=== PATIENT | female | born 1935 | race Caucasian/White ===

== ENCOUNTER 2024-10-10 13:12 | Day surgery (SDC) | payer MEDICARE, SELFPAY ==
[2024-10-04 14:07] VITALS: BMI 22.2
--- NOTE | 2024-10-09 16:58 | EXP.HP ---
History of Present Illness *Admission Date: 10/10/24 *History of present illness: Mrs. Holt is an 89-year-old female who is here for diagnostic EGD. She was seen in the office in April 2024. 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 The patient does take psyllium Konsyl daily. The patient was struggling with bowel and bladder control difficulties and did undergo Axonics last year. She does state that she is 75% improved with her symptoms of bowel and bladder control. Her only complaint now is mild GERD symptoms that are present most days. She does get some moderate gassiness and bloating. The patient does have a personal history of adenomatous polyps. She had a colonoscopy in May 2020 and had small tubular adenomas removed and banding of internal hemorrhoids. Her last colonoscopy with me in May 2023 revealed 2 benign polyps (tubular adenomas x 2) which were removed. I did state that she would not require any further surveillance. She had an EGD with me in May 2023 and had evidence of pyloric sparing Whipple procedure with Sreekanth anatomy. She did not have any King's esophagus. The patient did have enteropathogenic E. coli in February 2023. The patient had been on Creon before but did not have any significant clinical improvement. This was cost prohibitive. She did have a mildly elevated tissue transglutaminase IgG at 8. PFSH [facility] Disclaimer: The information contained in this section may have been updated after the patient was seen, as this information can be updated by other users. Medical History Thyroid cancer Sleep apnea Schatzki's ring Hyperthyroidism Osteoporosis Irregular heart beat Hiatal hernia Heart murmur Internal hemorrhoids GERD (gastroesophageal reflux disease) Diverticulosis Cecal angiodysplasia Gastritis Ampullary adenoma Surgical History H/O left wrist surgery History of left knee replacement H/O bilateral breast reduction surgery H/O Whipple procedure H/O tubal ligation H/O thyroidectomy H/O gastric bypass Family History Brother Pancreatic cancer Sister Lung cancer Daughter Breast cancer Social History Smoking Status: Former smoker alcohol intake: never substance use type: denies use current occupational status: retired Travel in the last 8 weeks?: None Have you lived/traveled outside US in past 30 days?: No Contact w/someone who lives/traveled outside US past 30 days?: No Exposure to someone with infectious disease in past 14 days?: No Do you have a fever (greater than 100.4 F or 38 C)?: No Have you tested positive for COVID-19?: No Exposed to someone with COVID-19 in past 14 days?: No Do you have a sore throat?: No Do you have a cough?: No Do you have any weakness?: No Do you have any diarrhea?: No Are you experiencing any unusual bleeding?: No Do you have any muscle aches/pain?: No Do you have any abdominal pain?: No Are you experiencing loss of taste or smell?: No Other Medical History Have you received the Pneumonia Vaccine: Yes Review of Systems Review of Systems Review of systems (narrative): Negative *Cardiovascular Comments: Negative *Gastrointestinal Comments: Negative *Genitourinary Comments: Negative *Musculoskeletal Comments: Negative *Neurologic Comments: Negative Meds Home Medications and Allergies Home Medications ?Medication ?Instructions ?Recorded ?Confirmed ?Type alendronate 70 mg tablet 70 mg PO QWEEK 04/04/24 10/10/24 History calcitriol 0.5 mcg capsule 0.5 mcg PO DAILY 04/04/24 10/10/24 History cyanocobalamin (vitamin B-12) 1,000 mcg SQ QMONTH 04/04/24 10/10/24 History 1,000 mcg/mL injection solution escitalopram oxalate 10 mg tablet 10 mg PO DAILY 04/04/24 10/10/24 History levothyroxine 112 mcg tablet 112 mcg PO DAILY 04/04/24 10/10/24 History bbnoqz-goipzecg-jqgdupk 2 cap PO TID 04/04/24 10/10/24 History 36,000-114,000-180,000 unit capsule,delay rel (Creon) nitroglycerin 0.3 mg sublingual 0.3 mg sublingual Q5-15M PRN Heart 04/04/24 10/10/24 History tablet omeprazole 40 mg capsule,delayed 40 mg PO DAILY 04/04/24 10/10/24 History release potassium chloride 10 mEq 10 meq PO DAILY 04/04/24 10/10/24 History capsule,extended release pramipexole 1.5 mg tablet 1.5 mg PO HS 04/04/24 10/10/24 History triamterene 37.5 1 tab PO DAILY 04/04/24 10/10/24 History mg-hydrochlorothiazide 25 mg tablet calcium carbonate (Oyster Shell 1,000 mg PO DAILY 05/08/24 10/10/24 History Calcium) cholecalciferol (vitamin D3) 75 75 mcg PO DAILY 05/08/24 10/10/24 History mcg (3,000 unit) tablet loteprednol etabonate 0.5 % eye 1 drp ophthalmic (eye) QID 05/08/24 10/10/24 History drops,suspension magnesium oxide 400 mg PO DAILY 05/08/24 10/10/24 History telmisartan 40 mg tablet 40 mg PO BID 05/08/24 10/10/24 History New Prescriptions to Start Prescriptions: Allergies Allergy/AdvReac Type Severity Reaction Status Date / Time acetaminophen (From Percocet) Allergy Other Verified 10/10/24 14:13 oxycodone (From Percocet) Allergy Other Verified 10/10/24 14:13 Penicillins Allergy Other Verified 10/10/24 14:13 Exam *Routine HEENT Exam Head: Present normocephalic Eye: Present EOMI and PERRL ENT: Present mucous membranes moist *Routine Neck Exam Neck: Present supple *Routine Respiratory Exam Respiratory: Present CTA bilaterally *Routine Cardiovascular Exam Cardiovascular: Present RRR *Routine Abdominal Exam Abdominal: Present soft and normoactive bowel sounds; Absent tenderness *Routine Rectal Exam Rectal:: deferred *Routine Genitalia Exam Genitalia:: deferred *Routine Extremities Exam Extremities: Absent cyanosis, clubbing or edema *Routine Skin Exam Skin: Present warm; Absent rash *Routine Neurological Exam Neurological: Present alert and oriented X3 Assessment and Plan *Assessment and plan (1) Functional dyspepsia: Status: Acute Category: Medical Code(s): K30 - Functional dyspepsia (2) GERD (gastroesophageal reflux disease): Status: Acute Category: Medical Code(s): K21.9 - Gastro-esophageal reflux disease without esophagitis (3) History of malignant neoplasm of ampulla of Vater: Status: Acute Category: Medical Code(s): Z85.09 - Personal history of malignant neoplasm of other digestive organs Plan A/P: 1. 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 The patient will be anesthetized/sedated using MAC sedation. The patient has been seen and examined. Cardiac and lung assessment prior to the examination is stable. Proceed with planned diagnostic EGD.
[2024-10-10 14:16] VITALS: BP 128/67; PULSE 63; RESP 18; TEMP 36.1; O2SAT 100
[2024-10-10] MEDS: LACTATED RINGERS 1000ML 1,000 ML 50 ML IV (14:21)
--- NOTE | 2024-10-10 14:22 | P.PNANES_ITS ---
[facility] Disclaimer: The information contained in this section may have been updated after the patient was seen, as this information can be updated by other users. Medical History Thyroid cancer Sleep apnea Schatzki's ring Hyperthyroidism Osteoporosis Irregular heart beat Hiatal hernia Heart murmur Internal hemorrhoids GERD (gastroesophageal reflux disease) Diverticulosis Cecal angiodysplasia Gastritis Ampullary adenoma Surgical History H/O left wrist surgery History of left knee replacement H/O bilateral breast reduction surgery H/O Whipple procedure H/O tubal ligation H/O thyroidectomy H/O gastric bypass Family History Brother Pancreatic cancer Sister Lung cancer Daughter Breast cancer Social History Smoking Status: Former smoker alcohol intake: never substance use type: denies use current occupational status: retired Travel in the last 8 weeks?: None Have you lived/traveled outside US in past 30 days?: No Contact w/someone who lives/traveled outside US past 30 days?: No Exposure to someone with infectious disease in past 14 days?: No Do you have a fever (greater than 100.4 F or 38 C)?: No Have you tested positive for COVID-19?: No Exposed to someone with COVID-19 in past 14 days?: No Do you have a sore throat?: No Do you have a cough?: No Do you have any weakness?: No Do you have any diarrhea?: No Are you experiencing any unusual bleeding?: No Do you have any muscle aches/pain?: No Do you have any abdominal pain?: No Are you experiencing loss of taste or smell?: No [facility] Anesthesia Checklist Patient Identification Patient Identification: Arm Band Structural Data Admitted From: Home Planned Operative Procedure/s: EGD Consent for Planned Operative Procedure(s) Verified: Yes Verified Documents: Surgical Consent and History and Physical NPO Status Verified Time NPO: 00:00 Additional verifications Anesthesia Reactions: No Airway Assessment Mallampati Score:: Class II C-Spine Mobility Assessed: Yes TMJ Mobility Assessed: Yes Dentition: Good Dentition Neurological Assessment Level of Consciousness: Awake, Alert and Appropriate Anesthesia Plan Anesthesia Risk discussed: Yes Anesthesia Plan: Verified ASA Class: II Anesthesia Type: MAC
--- NOTE | 2024-10-10 14:28 | HMH.PROCNOTE ---
[facility] Procedure Note Date: 10/10/24 Time: 14:51 Procedure Note:: Upper Endoscopy Procedure Report: Esophagogastroduodenoscopy with cold biopsies and TTS balloon dilation Endoscopost: Jonathan Luther II, MD Referring Physician: Panchito Mansfield MD, [address], [place] [address] Date of Procedure: October 10, 2024 Equipment: Olympus GIF-1100 standard upper endoscope Sedation: MAC sedation Indications: Mrs. Holt is an 89-year-old female who is here for diagnostic EGD. She was seen in the office in April 2024. 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 The patient does take psyllium Konsyl daily. The patient was struggling with bowel and bladder control difficulties and did undergo Axonics last year. She does state that she is 75% improved with her symptoms of bowel and bladder control. Her only complaint now is mild GERD symptoms that are present most days. She does get some moderate gassiness and bloating. The patient does have a personal history of adenomatous polyps. She had a colonoscopy in May 2020 and had small tubular adenomas removed and banding of internal hemorrhoids. Her last colonoscopy with mt in May 2023 revealed 2 benign polyps (tubular adenomas x 2) which were removed. I did state that she would not require any further surveillance. She had an EGD with me in May 2023 and had evidence of pyloric sparing Whipple procedure with Sreekanth anatomy. She did not have any King's esophagus. The patient did have enteropathogenic E. coli in February 2023. The patient had been on Creon before but did not have any significant clinical improvement. This was cost prohibitive. She did have a mildly elevated tissue transglutaminase IgG at 8. Procedure: Prior to the procedure, a history and physical exam was performed, and patient's medications and allergies were reviewed. The risks, benefits and alternatives of the sedation and procedure were discussed with the patient. All questions were answered and informed consent was obtained. The patient was brought to the procedure room. Patient identification and proposed procedure were verified by the physician and the nurse. The patient was placed in a left lateral decubitus position and the scope was passed under direct vision. Throughout the procedure, the patient's blood pressure, pulse, and oxygen saturations were monitored continuously. The upper GI endoscopy was accomplished without difficulty. The patient tolerated the procedure well. Findings: The scope was passed directly into the upper esophagus and advanced to the efferent and afferent limbs of the jejunum and Sreekanth-en-Y. The jejunal mucosa was normal. There was some bile accumulation in the jejunum and stomach. A cold biopsy was taken from the jejunum for the disaccharidase assay. The scope was withdrawn through the anastomosis and into the stomach. There was moderate bile reflux with linear reactive gastropathy of the antrum and body. Cold biopsies were taken from the antrum/body. The fundus of the stomach was normal. There were couple of fundic gland polyps. Upon retroflexion there was a very small 2 cm hiatal hernia. The scope was then withdrawn into the esophagus. There was no evidence of reflux esophagitis or King's. There were no rings, strictures, webs, furrowing or corrugation. There was no evidence of candidal esophagitis. There were strong tertiary contractions and evidence of moderate esophageal dysmotility. The entire esophagus was dilated to 60 [place]/20 mm with a TTS hydrostatic balloon. The remainder of the esophageal mucosa was normal. Impression: 1. Nonerosive GERD with moderate esophageal dysmotility and very small 2 cm hiatal hernia 2. Bile reflux with linear reactive gastropathy 3. Normal pyloric sparing Sreekanth-en-Y anatomy Plan: I will follow-up the biopsies and disaccharidase assay. 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 I will discuss the findings with the patient and family.
[2024-10-10 14:51] VITALS: BP 80/51; PULSE 64; RESP 18; TEMP 36.3; O2SAT 91
[2024-10-10 15:01] VITALS: BP 93/50; PULSE 61; O2SAT 97
[2024-10-10 15:11] VITALS: BP 97/46; PULSE 67; O2SAT 93
[2024-10-10 15:21] VITALS: BP 110/64; PULSE 60; O2SAT 98
[2024-10-17 12:44] LABS: Interpretation Notes (.); Lactase 1.82 (>/= 14.0); Maltase 240.35 (>/= 110.0); Palatinase 16.65 (>/= 8.5); Reference Notes (.); Sucrase 54.62 (>/= 25.0)
== END 2024-10-10 15:21 | disposition home or self-care (01) ==
PROVIDERS: PCP Internal Medicine; Visit Provider Internal Medicine Gastroenterology
PROC: 0DJ08ZZ Inspection of Upper Intestinal Tract, Via Natural or Artificial Opening Endoscopic (ICD-10-PCS; CPT 43239; principal; 2024-10-10 15:00)
DX: K21.9 Gastro-esophageal reflux disease without esophagitis (principal); K31.9 Disease of stomach and duodenum, unspecified; E05.90 Thyrotoxicosis, unspecified without thyrotoxic crisis or storm; Z85.850 Personal history of malignant neoplasm of thyroid; Z87.891 Personal history of nicotine dependence; Z88.1 Allergy status to other antibiotic agents; Z79.899 Other long term (current) drug therapy; Z79.890 Hormone replacement therapy
CPT/HCPCS: 43239; 43249; 82657; C1726; J2704; J7120